=== PATIENT | female | born 1960 | race Caucasian/White ===

== ENCOUNTER 2017-09-26 23:09 | Inpatient (IN) | payer OTHER ==
[~2017-09-26] VITALS: Ht 165.1 cm; Wt 100.0 kg
[2017-09-26 23:23] LABS: GLUCOSE,POINT OF CARE 134 MG/DL (70-110)
[2017-09-26] MEDS ORDERED: AMIT50TA3 PO (23:23)
[2017-09-26] MEDS ORDERED: TRAZ-144 PO (23:23)
[2017-09-26] MEDS ORDERED: HYDR-4106 PO (23:23)
[2017-09-26] MEDS ORDERED: GABA-533 PO (23:23)
[2017-09-26 23:31] LABS: BASOPHILS % (AUTO) 0.3 % (0.0-2.0); EOSINOPHILS % (AUTO) 0.2 % (1.0-6.0); HEMOGLOBIN 15.4 g/dL (12.0-16.0); LYMPHOCYTES # (AUTO) 1.2 K/uL (1.0-4.8); LYMPHOCYTES % (AUTO) 13.1 % (22.0-44.0); MEAN CORPUSCULAR HEMOGLOBIN 31.6 pg (26.0-34.0); MEAN CORPUSCULAR HGB CONC 34.2 G/dL (31.0-37.0); MEAN CORPUSCULAR VOLUME 92 fL (80-100); MONOCYTES # (AUTO) 0.6 K/uL (0.1-1.0); MONOCYTES % (AUTO) 6.8 % (2.0-9.0); NEUTROPHILS % (AUTO) 79.6 % (40.0-70.0); PLATELET COUNT (AUTO) 218 K/uL (150-450); RED BLOOD CELL COUNT(AUTO) 4.87 MIL/uL (4.00-5.20); RED CELL DISTRIBUTION WIDTH 13.9 % (11.5-14.5); WHITE BLOOD COUNT (AUTO) 8.8 K/uL (4.5-11.0)
[2017-09-27] LABS: ALANINE AMINOTRANSFERASE 88 U/L (12-78); ALBUMIN 3.4 g/dL (3.4-5.0); ANION GAP 8 mmol/L (8-16); ASPARTATE AMINOTRANSFERASE 51 U/L (15-37); BILIRUBIN,TOTAL 0.4 mg/dL (0.1-1.0); CALCIUM, TOTAL 8.8 mg/dL (8.8-10.5); CARBON DIOXIDE 27 mmol/L (22-29); CHLORIDE 107 mmol/L (98-107); CREATININE 0.75 mg/dL (0.60-1.30); GLOMERULAR FILTR. RATE CALC > 60 mL/min (>60); POTASSIUM 3.4 mmol/L (3.5-5.1); SODIUM SERUM 142 mmol/L (136-145); TOTAL PROTEIN, SERUM 6.9 g/dL (6.4-8.2); UREA NITROGEN, BLOOD 13 mg/dL (7-18)
[2017-09-27 00:01] LABS: ACETAMINOPHEN < 10 mcg/mL (10-30)
[2017-09-27 00:11] LABS: SALICYLATE 0.4 mg/dL (2.8-20.0)
[2017-09-27] MEDS ORDERED: NALOXONE HCL 1 MG/ML 2 ML SYG IVP ONE (04:00)
[2017-09-27] MEDS ORDERED: ONDANSETRON HCL 4 MG/2 ML VIAL IVP PRN (05:15)
[2017-09-27] MEDS ORDERED: 0.9% SODIUM CHLORIDE 10 ML SYRINGE IVP PRN (05:15)
[2017-09-27 08:02] VITALS: BP 139/94
[2017-09-27 08:09] LABS: ALANINE AMINOTRANSFERASE 88 U/L (12-78); ALBUMIN 3.3 g/dL (3.4-5.0); ANION GAP 9 mmol/L (8-16); ASPARTATE AMINOTRANSFERASE 43 U/L (15-37); BILIRUBIN,TOTAL 0.4 mg/dL (0.1-1.0); CALCIUM, TOTAL 8.5 mg/dL (8.8-10.5); CARBON DIOXIDE 28 mmol/L (22-29); CHLORIDE 104 mmol/L (98-107); CREATININE 0.77 mg/dL (0.60-1.30); GLOMERULAR FILTR. RATE CALC > 60 mL/min (>60); POTASSIUM 3.6 mmol/L (3.5-5.1); SODIUM SERUM 141 mmol/L (136-145); TOTAL PROTEIN, SERUM 6.1 g/dL (6.4-8.2); UREA NITROGEN, BLOOD 11 mg/dL (7-18)
[2017-09-27 08:22] LABS: ACETAMINOPHEN 1 mcg/mL (10-30)
[2017-09-27] MEDS ORDERED: ACETAMINOPHEN 325 MG TABLET PO PRN (10:15)
[2017-09-27] MEDS ORDERED: MAGNESIUM HYDROXIDE SUSPENSION 30 ML UDCUP PO PRN (10:15)
[2017-09-27] MEDS: DEXTROSE 5%-0.45% SODIUM CHL 1,000 ML IV SCH (10:30)
[2017-09-27 11:08] VITALS: BP 115/76
[2017-09-27 13:55] VITALS: BP 137/69
[2017-09-27 15:01] VITALS: BP 110/72
[2017-09-27] MEDS: HEPARIN SODIUM,PORCINE 5,000 UNITS/ML VIAL SQ SCH (16:52)
[2017-09-27 20:02] VITALS: BP 123/70
[2017-09-27] MEDS: DOCUSATE SODIUM 100 MG CAPSULE PO SCH (21:00)
[2017-09-28] MEDS: HEPARIN SODIUM,PORCINE 5,000 UNITS/ML VIAL SQ SCH ×3 (00:10→17:41)
[2017-09-28] MEDS: DEXTROSE 5%-0.45% SODIUM CHL 1,000 ML IV SCH (00:10)
[2017-09-28 00:51] VITALS: BP 142/63
[2017-09-28 05:07] VITALS: BP 139/75
[2017-09-28 07:17] LABS: ALANINE AMINOTRANSFERASE 64 U/L (12-78); ALBUMIN 3.1 g/dL (3.4-5.0); ANION GAP 8 mmol/L (8-16); ASPARTATE AMINOTRANSFERASE 21 U/L (15-37); BILIRUBIN,TOTAL 0.7 mg/dL (0.1-1.0); CALCIUM, TOTAL 8.6 mg/dL (8.8-10.5); CARBON DIOXIDE 27 mmol/L (22-29); CHLORIDE 102 mmol/L (98-107); GLOMERULAR FILTR. RATE CALC > 60 mL/min (>60); POTASSIUM 3.7 mmol/L (3.5-5.1); SODIUM SERUM 137 mmol/L (136-145); TOTAL PROTEIN, SERUM 6.5 g/dL (6.4-8.2); UREA NITROGEN, BLOOD 6 mg/dL (7-18)
[2017-09-28 07:24] VITALS: BP 126/67
[2017-09-28] MEDS: PANTOPRAZOLE SODIUM 40 MG/VIAL IVP SCH (09:23)
[2017-09-28] MEDS: DOCUSATE SODIUM 100 MG CAPSULE PO SCH ×2 (09:23→20:56)
[2017-09-28 11:13] VITALS: BP 129/76
[2017-09-28 15:04] VITALS: BP 124/72
[2017-09-28 19:05] VITALS: BP 120/70
[2017-09-29 00:18] VITALS: BP 123/71
[2017-09-29] MEDS: HEPARIN SODIUM,PORCINE 5,000 UNITS/ML VIAL SQ SCH ×2 (00:24→08:10)
[2017-09-29 03:19] VITALS: BP 124/69
[2017-09-29 07:39] VITALS: BP 111/64
[2017-09-29] MEDS: PANTOPRAZOLE SODIUM 40 MG/VIAL IVP SCH (08:10)
[2017-09-29] MEDS: DOCUSATE SODIUM 100 MG CAPSULE PO SCH (08:10)
[2017-09-29 11:00] VITALS: BP 104/59
== END 2017-09-29 15:00 | disposition home or self-care (01) | DRG 812 ==
LOC: EMS 23:11 → 5N 09-27 05:09 → 6N 09-28 18:10
PROVIDERS: ADMIT Hospitalist; ATTEND Hospitalist
DX: T42.72XA Poisoning by unspecified antiepileptic and sedative-hypnotic drugs, intentional self-harm, initial encounter (principal); G92 Toxic encephalopathy; F33.2 Major depressive disorder, recurrent severe without psychotic features; E66.9 Obesity, unspecified; M54.30 Sciatica, unspecified side; I10 Essential (primary) hypertension; Z68.36 Body mass index [BMI] 36.0-36.9, adult; Z79.899 Other long term (current) drug therapy; Y92.89 Other specified places as the place of occurrence of the external cause
CPT/HCPCS: 70450; 82962; 83735; 93005; 96374; 99285; C9113; G0480; G0481; J1644; J2310